=== PATIENT | female | born 1995 | race Two or more races ===

== ENCOUNTER 2020-04-06 14:54 | Outpatient (CLI) | payer OTHER ==
[2020-04-06] MEDS ORDERED: BUPR150T7 PO (15:58)
== END 2020-04-06 23:59 | disposition home or self-care (01) ==
LOC: STAR 14:54
PROVIDERS: ATTEND Obstetrics & Gynecology
DX: U07.1 COVID-19 (principal); Z01.812 Encounter for preprocedural laboratory examination; N94.6 Dysmenorrhea, unspecified; R10.2 Pelvic and perineal pain; N92.0 Excessive and frequent menstruation with regular cycle; N80.9 Endometriosis, unspecified
CPT/HCPCS: 36415; 81001; 81025; 85025; U0003

== ENCOUNTER → 2020-05-01 | Outpatient (CLI) | payer OTHER ==
[~2020-05-01] MED LIST: BUPR150T7 PO; NORG1TAB90 PO
[2020-05-01 16:06] LABS: BASOPHILS % (AUTO) 1 % (0-1); EOSINOPHILS % (AUTO) 1 % (1-7); LYMPHOCYTES % (AUTO) 36 % (22-44); MD NO; MEAN CORPUSCULAR HGB CONC 33.6 g/dL (32.4-35.8); MEAN PLATELET VOLUME 8.6 fL (7.4-10.4); MONOCYTES % (AUTO) 8 % (2-9); NEUTROPHILS % (AUTO) 55 % (42-75); PLATELET COUNT 398 x10^3/uL (130-400); RED BLOOD COUNT 4.63 x10^6/uL (3.82-5.3); RED CELL DISTRIBUTION WIDTH 13.1 % (9.6-15.2)
[2020-05-01 16:16] LABS: HCG UR SG 1.027 (1.003-1.030); MICROSCOPIC AUTO
== END | disposition home or self-care (01) ==
LOC: STAR 14:59
PROVIDERS: ATTEND Obstetrics & Gynecology
DX: Z01.818 Encounter for other preprocedural examination (principal); R10.2 Pelvic and perineal pain; N94.6 Dysmenorrhea, unspecified
CPT/HCPCS: 36415; 81001; 81025; 85025; 87086

== ENCOUNTER 2020-05-07 05:40 | Day surgery (SDC) | payer OTHER ==
[2020-05-01 15:27] VITALS: BP 125/79
[~2020-05-07] VITALS: Ht 167.6 cm; Wt 131.0 kg
[2020-05-07] MEDS ORDERED: ACETAMINOPHEN 500 MG TABLET PO ONE (06:30)
[2020-05-07] MEDS ORDERED: LACTATED RINGERS 1,000 ML IV SCH (07:00)
[2020-05-07] MEDS ORDERED: CHLORHEXIDINE 15 ML UDC MM ONE (07:00)
[2020-05-07 07:02] LABS: HCG UR SG 1.024 (1.003-1.030)
[2020-05-07] MEDS ORDERED: BUPIVACAINE/PF 0.5% ONE (07:19)
[2020-05-07] MEDS ORDERED: EPINEPHRINE 1 MG/ML, 1ML ONE (07:19)
[2020-05-07] MEDS ORDERED: BUPIVACAINE/PF 0.25% ONE (07:19)
[2020-05-07] MEDS ORDERED: MIDAZOLAM 1 MG/ML, 2ML ONE (07:20)
[2020-05-07] MEDS ORDERED: FENTANYL PF 250 MCG/5ML ONE (07:21)
[2020-05-07] MEDS ORDERED: PROPOFOL 10 MG/ML, 20ML ONE (07:30)
[2020-05-07] MEDS ORDERED: SUGAMMADEX 200 MG/2 ML IVPush ONE (07:30)
[2020-05-07] MEDS ORDERED: SUCCINYLCHOLINE 20 MG/ML, 10ML ONE (07:30)
[2020-05-07] MEDS ORDERED: DEXAMETHASONE 4 MG/ML, 1ML ONE (07:30)
[2020-05-07] MEDS ORDERED: ONDANSETRON 2MG/ML, 2ML ONE (07:30)
[2020-05-07] MEDS ORDERED: ROCURONIUM 10 MG/ML,10ML ONE (07:30)
[2020-05-07] MEDS ORDERED: CEFAZOLIN 1,000 MG ONE (07:30)
[2020-05-07] MEDS ORDERED: HYDROmorphone 1 MG/ML, 1ML INJ IV PRN (08:00)
[2020-05-07] MEDS ORDERED: hydrALAzine 20 MG/ML, 1ML IV PRN (08:00)
[2020-05-07] MEDS ORDERED: METOCLOPRAMIDE 5 MG/ML, 2ML IV PRN (08:00)
[2020-05-07] MEDS ORDERED: MEPERIDINE/PF 25MG/0.5ML IVPush PRN (08:00)
[2020-05-07] MEDS ORDERED: ONDANSETRON 2MG/ML, 2ML IVPush PRN (08:00)
[2020-05-07] MEDS ORDERED: DIAZEPAM 5 MG/ML, 2ML IV PRN ×2 (08:00)
[2020-05-07] MEDS ORDERED: PROMETHAZINE 25 MG/ML, 1ML IV PRN (08:00)
[2020-05-07] MEDS ORDERED: KETOROLAC 30 MG/1 ML IV PRN (08:00)
[2020-05-07] MEDS ORDERED: ALBUTEROL SULFATE 2.5 MG/3 ML NPPB PRN (08:00)
[2020-05-07] MEDS ORDERED: LABETALOL 5MG/ML, 20ML IV PRN (08:00)
[2020-05-07] MEDS ORDERED: OXYcodone 5 MG/5 ML ORAL.SOL UDC PO PRN (08:00)
[2020-05-07] MEDS ORDERED: ACETAMINOPHEN 650 MG/20.3 ML UDC ONE (09:19)
[2020-05-07] MEDS ORDERED: FENTANYL PF 100 MCG/2ML ONE (09:20)
[2020-05-07] MEDS ORDERED: OXYcodone 5 MG/5 ML ORAL.SOL UDC ONE (09:20)
[2020-05-07] MEDS: FENTANYL PF 100 MCG/2ML IV PRN ×2 (09:20→09:30)
== END 2020-05-07 12:10 | disposition home or self-care (01) ==
LOC: OUT 05:40
PROVIDERS: ATTEND Obstetrics & Gynecology
DX: Z30.2 Encounter for sterilization (principal); N94.6 Dysmenorrhea, unspecified; N92.0 Excessive and frequent menstruation with regular cycle; N73.6 Female pelvic peritoneal adhesions (postinfective); N80.1 Endometriosis of ovary; N83.8 Other noninflammatory disorders of ovary, fallopian tube and broad ligament; J45.909 Unspecified asthma, uncomplicated; F32.9 Major depressive disorder, single episode, unspecified; G43.909 Migraine, unspecified, not intractable, without status migrainosus; E66.01 Morbid (severe) obesity due to excess calories; Z68.42 Body mass index [BMI] 45.0-49.9, adult; Z79.3 Long term (current) use of hormonal contraceptives; Z91.048 Other nonmedicinal substance allergy status
CPT/HCPCS: 36415; 58661; 58662; 81025; 86850; 86900; 88305; J0171; J0330; J0690; J1100; J2250; J2405; J2704; J3010; J7120